=== PATIENT | female | born 1965 | race Caucasian/White ===

== ENCOUNTER 2016-07-16 19:07 | Emergency (ER) | payer OTHER ==
[~2016-07-16] VITALS: Ht 162.6 cm; Wt 72.7 kg
[~2016-07-16 19:07] MED LIST: ACET500C5 PO; NITR-58 PO
[2016-07-16 19:10] VITALS: Ht 162.6 cm; Wt 72.7 kg
[2016-07-16] MEDS ORDERED: HYDROmorphONE 1 MG/ML SYG IV STA (19:29)
[2016-07-16] MEDS ORDERED: ONDANSETRON 4 MG INJ IV STA (19:29)
[2016-07-16] MEDS ORDERED: SOD CHLORIDE 0.9% 500 ML IV STA (19:29)
--- NOTE | 2016-07-16 19:36 | ERA ---
ER Documentation Chief Complaint Date/Time DATE: 07/16/16 TIME: 19:32 Chief Complaint FALL ON LEFT WRIST WITH INJURY AND DEFORMITY. SURGERY IN THE PAST. HPI 51-year-old female with recent surgical repair to the left wrist who presents with a mechanical fall, fall on outstretched hand, now with left wrist pain and deformity. Pain is 10 out of 10. She denies any numbness or tingling or sensation loss in the left hand. She denies head trauma or loss of consciousness, no neck pain. Pain is constant and certainly worse with movement. ROS All systems reviewed and are negative except as per history of present illness. Medications Home Meds Active Scripts Ibuprofen* (Motrin*) 800 Mg Tab, 800 MG PO Q6H Y for PAIN AND OR ELEVATED TEMP, #30 TAB Prov:LISA MICHELLE MD 07/16/16 Ondansetron (Ondansetron Odt) 4 Mg Tab.rapdis, 4 MG PO Q6H Y for NAUSEA AND/OR VOMITING, #30 TAB Prov:LISA MICHELLE MD 07/16/16 Hydrocodone/Acetaminophen ([place] 10-325 Tablet) 1 Each Tablet, 1 TAB PO Q6H Y for PAIN, #12 TAB Prov:LISA MICHELLE MD 07/16/16 Acetaminophen* (Tylophen*) 500 Mg Capsule, 1 CAP PO Q6H Y for PAIN AND OR ELEVATED TEMP, #20 CAP Prov:COSTA HERRERA PA-C 01/24/16 Nitrofurantoin Monohyd Macrocr* (Macrobid*) 100 Mg Capsr, 100 MG PO BID for 5 Days, CAP Prov:COSTA HERRERA PA-C 01/24/16 Allergies Allergies: Coded Allergies: No Known Allergy (Unverified , 01/24/16) PMhx/Soc Hx Alcohol Use: No Hx Substance Use: No Hx Tobacco Use: No FmHx Family History: No diabetes Physical Exam Vitals Vital Signs Date Time Temp Pulse Resp B/P Pulse Ox O2 Delivery O2 Flow Rate FiO2 07/16/16 21:04 98.6 69 16 124/87 100 Room Air 07/16/16 19:10 97.1 102 18 154/96 98 Physical Exam Airway is intact Bilateral breath sounds Strong distal pulses No obvious deficits General: Well developed, well nourished, no acute distress Head: Normocephalic, atraumatic Eyes: Pupils equally reactive, EOM intact ENT: Moist mucous membranes Neck: Supple, no lymphadenopathy, No midline tenderness, deformities, step-offs to the cervical spine, full active and passive range of motion without midline pain. Respiratory: Lungs clear bilaterally, no distress, no chest wall tenderness, no crepitus Cardiovascular: RRR, no murmurs, rubs, or gallops Abdominal: Soft, non-tender, non-distended, no peritoneal signs, pelvis is stable : Deferred MSK: Obvious deformity to left wrist, patient is able to move her fingers, 2+ radial and ulnar pulses, no tenderness to the elbow or humerus or clavicle., no midline tenderness deformities or step-offs to the thoracolumbar spine Neurologic: Alert and oriented, moving all extremities, normal speech, no focal weakness, no cerebellar signs Skin: No ecchymoses or bruising to the chest or abdomen Psych: Normal mood Result Diagram: 07/16/16193307/16/161933 Results 24 hrs Laboratory Tests Test 07/16/16 19:34 White Blood Count 5.610^3/ul Red Blood Count 4.5110^6/ul Hemoglobin 13.8g/dl Hematocrit 39.9% Mean Corpuscular Volume 88.5fl Mean Corpuscular Hemoglobin 30.6pg Mean Corpuscular Hemoglobin Concent 34.6g/dl Red Cell Distribution Width 13.3% Platelet Count 60727^3/UL Mean Platelet Volume 9.6fl Neutrophils % 56.5% Lymphocytes % 34.8% Monocytes % 5.9% Eosinophils % 2.1% Basophils % 0.5% Nucleated Red Blood Cells % 0.0/100WBC Neutrophils # 3.210^3/ul Lymphocytes # 2.010^3/ul Monocytes # 0.310^3/ul Eosinophils # 0.110^3/ul Basophils # 0.010^3/ul Nucleated Red Blood Cells # 0.010^3/ul Prothrombin Time 13.0Sec Prothrombin Time Ratio 1.0 INR International Normalized Ratio 0.98 Activated Partial Thromboplast Time 33.0Sec Sodium Level 145mmol/L Potassium Level 3.5mmol/L Chloride Level 109mmol/L Carbon Dioxide Level 23mmol/L Anion Gap 17 Blood Urea Nitrogen 9mg/dl Creatinine 0.53mg/dl Glucose Level 74mg/dl Calcium Level 9.2mg/dl Current Medications Medications (Trade) Dose Ordered Sig/Carroll Route PRN Reason Start Time Stop Time Status Last Admin Dose Admin Sodium Chloride (NS) 500 ml @ 500 mls/hr Q1H STAT IV 07/16/16 19:29 07/16/16 20:28 DC 07/16/16 19:50 Hydromorphone HCl (Dilaudid) 1 mg ONCE STAT IV 07/16/16 19:29 07/16/16 19:31 DC 07/16/16 19:50 Ondansetron HCl (Zofran Inj) 4 mg ONCE STAT IV 07/16/16 19:29 07/16/16 19:31 DC 07/16/16 19:50 Procedures/MDM EKG, MONITORS, & DIAGNOSTIC IMAGING: EKG: I reviewed and interpreted a 12-lead EKG. Rhythm: Normal sinus rhythm Ectopy: None Intervals: No abnormalities ST segments: No elevations or depressions T waves: No contiguous inversions EKG #2 EKG: I reviewed and interpreted a 12-lead EKG. Rhythm: Normal sinus rhythm Ectopy: None Intervals: No abnormalities ST segments: No elevations or depressions T waves: No contiguous inversions Chest x-ray: I reviewed and interpreted a 1 view of the chest Mediastinum: No enlargement Cardiac silhouette: No cardiomegaly Airspace: Clear lung mercado bilaterally without evidence of pneumothorax Bones: No evidence of fracture X-ray left wrist: I reviewed and interpreted multiple views of the x-ray Bones: Comminuted fracture of the distal radius with fracture of the hardware Soft tissue: No evidence of foreign body PROCEDURES: Splint Application Note: Splint type: Sugar tong, Ortho-Glass, fabricated Extremity: Left upper extremity Indication: Left wrist fracture The patient was consented at bedside prior to splint application and states understanding of risks, benefits, and alternatives. The patient was neurovascularly intact prior to and status post application of the splint. The patient tolerated the procedure well and there were no complications. LAB INTERPRETATION: No acute process MEDICAL DECISION MAKING: The patient presents with obvious deformity of the left wrist likely consistent with closed left wrist fracture however complicated because the patient recently had surgical repair and ORIF. The patient surgery was approximately 1 -1.5 months ago at all of you. She does not recall the surgeon's name. The patient will likely benefit from transfer back to this facility for continuity of care. The patient will benefit from pain control medication. No evidence of compartment syndrome. The patient has strong pulses. ER COURSE: The patient's pain is improved. The patient remains neurovascularly intact. I attempted to contact the patient's surgeon at [facility] however they recommended that we went through [facility]. [facility] states that there are no beds at [facility]. The patient cannot be transferred. I spoke to my orthopedic surgeon, Dr. Cisneros. He states that the patient can be followed up as an outpatient given the patient had surgery at [facility]. He does not recommend hospitalization at this time as he would not perform surgery. The patient was informed to follow-up in the orthopedic clinic with her surgeon as soon as possible in the next 24-48 hours. She was advised of return precautions and verbalizes understanding. She remains neurovascular intact and pain is well controlled. She did have a transient episode of epigastric abdominal discomfort she states is very similar to when she receives narcotics. A repeat EKG was ordered and is unchanged. I kept the patient and/or family informed of laboratory and diagnostic imaging results throughout the emergency room course. DISPOSITION PLAN: We discussed follow up with the patient's primary care doctor within 24 to 48 hours as needed. We also discussed return to the emergency room for worsening symptoms or worsening condition. Outpatient referral: Hand surgery, orthopedic surgery follow-up at [facility] Discharge Medications: [place], Zofran, Motrin We discussed the use of narcotics including avoidance of operating heavy machinery and driving as well as its addictive properties. CONSULTATION: [] Departure Diagnosis: Primary Impression: Closed fracture of left wrist Qualified Code: S62.102A - Closed fracture of left wrist, initial encounter Condition: Stable LISA MICHELLE MD Jul 16, 2016 19:36
[2016-07-16 20:00] LABS: ADD SCAN DIFF NO
[2016-07-16 20:01] LABS: BASOPHILS % 0.5 % (0.0-2.0); EOSINOPHILS # 0.1 10^3/ul (0.0-0.5); EOSINOPHILS % 2.1 % (0.0-7.0); HEMATOCRIT 39.9 % (37.0-47.0); HEMOGLOBIN 13.8 g/dl (12.0-16.0); LYMPHOCYTES % 34.8 % (15.0-51.0); MEAN CORPUSCULAR HEMOGLOBIN 30.6 pg (29.0-33.0); MEAN CORPUSCULAR HGB CONC 34.6 g/dl (32.0-37.0); MEAN CORPUSCULAR VOLUME 88.5 fl (82.0-101.0); MEAN PLATELET VOLUME 9.6 fl (7.4-10.4); MONOCYTE # 0.3 10^3/ul (0.3-0.9); MONOCYTES % 5.9 % (0.0-11.0); NEUTROPHIL # 3.2 10^3/ul (1.6-7.5); NEUTROPHILS % 56.5 % (39.0-77.0); PLATELET COUNT 265 10^3/UL (140-415); RED BLOOD COUNT 4.51 10^6/ul (4.20-5.40); RED CELL DISTRIBUTION WIDTH 13.3 % (11.5-14.5); WHITE BLOOD COUNT 5.6 10^3/ul (4.8-10.8)
[2016-07-16 20:17] LABS: INR 0.98
[2016-07-16 20:23] LABS: CALCIUM 9.2 mg/dl (8.4-10.2); CREATININE 0.53 mg/dl (0.44-1.00); POTASSIUM 3.5 mmol/L (3.5-5.1)
[2016-07-16 21:04] VITALS: BP 124/87; PULSE 69; RESP 16; TEMP 98.6
[2016-07-16] MEDS ORDERED: IBUP800T25 PO (21:13)
[2016-07-16] MEDS ORDERED: HYDR-902 PO (21:13)
[2016-07-16] MEDS ORDERED: ONDA4TAB14 PO (21:13)
--- NOTE | 2016-07-16 22:17 | RADRPT ---
PROCEDURE: XR Chest. CLINICAL INDICATION: Pain. TECHNIQUE: Single frontal chest x-ray. COMPARISON: None. FINDINGS: The cardiomediastinal silhouette is unremarkable. There is no congestive heart failure.. No focal i nfiltrate is seen. There is no pleural effusion. There is no pneumothorax. There is mild dextrosc oliosis of the thoracic spine.. IMPRESSION: 1. No active disease. RPTAT: HMVK .Cristobal Bartlett MD, MD Date Time Electronically viewed and signed by .Cristobal Bartlett MD, MD on 07/16/2016 22:17 .K/
--- NOTE | 2016-07-16 22:21 | RADRPT ---
PROCEDURE: Left wrist. CLINICAL INDICATION: Pain. TECHNIQUE: Three views including PA, lateral and oblique views were performed. COMPARISON: None. FINDINGS: There is an overlying cast which obscures underlying bony detail. There is prior open reduction and internal fixation of comminuted distal radius fracture with dorsal plate and multiple screws. Ther e distal aspect of the plate is broken and overriding. There are refractures of the distal radius w ith mild to moderate lateral displacement. There is surrounding callus formation. Bone mineralizat ion is decreased. IMPRESSION: Status post ORIF of comminuted distal radius fracture with broken dorsal plate. There is evidence of distal radius refractures. A call report was made to Dr. Aranda at 10:18 p.m. .Antonio Deluca MD, Date Time Electronically viewed and signed by .Antonio Deluca MD, MD on 07/16/2016 22:21 .T/
== END 2016-07-16 21:27 | disposition home or self-care (01) ==
LOC: E/R 19:07
DX: S52.502A Unspecified fracture of the lower end of left radius, initial encounter for closed fracture (principal); R10.13 Epigastric pain; W18.39XA Other fall on same level, initial encounter; Y92.9 Unspecified place or not applicable
CPT/HCPCS: 29515; 36415; 71010; 73110; 80048; 85025; 85610; 85730; 93005; 96374; 96375; J1170; J2405; J7040; Z7502